=== PATIENT | female | born 1945 | race African-American/Black ===

== ENCOUNTER 2016-12-09 21:20 | Emergency (ER) | payer BC, MEDICAID ==
[~2016-12-09] VITALS: Ht 157.5 cm; Wt 50.0 kg
[2016-12-10 01:05] VITALS: BP 145/82
== END 2016-12-10 01:07 | disposition home or self-care (01) ==
LOC: ER 21:47
DX: Z43.1 Encounter for attention to gastrostomy (principal); I69.259 Hemiplegia and hemiparesis following other nontraumatic intracranial hemorrhage affecting unspecified side; I10 Essential (primary) hypertension
CPT/HCPCS: 43760; 74000; 99284; Z7610

== ENCOUNTER 2016-12-10 15:27 | Emergency (ER) | payer BC ==
[~2016-12-10] VITALS: Ht 162.6 cm; Wt 52.0 kg
[2016-12-10 17:55] VITALS: BP 155/65
== END 2016-12-10 18:43 | disposition home or self-care (01) ==
LOC: ER 16:37
DX: K94.23 Gastrostomy malfunction (principal); I10 Essential (primary) hypertension; Z86.73 Personal history of transient ischemic attack (TIA), and cerebral infarction without residual deficits
CPT/HCPCS: 43760; 99284; Z7610

== ENCOUNTER 2017-02-11 09:23 | Inpatient (IN) | payer BC ==
[~2017-02-11] VITALS: Ht 160 cm; Wt 54.9 kg
[2017-02-11 11:11] LABS: BASOPHILS % 0.7 % (0.0-2.0); EOSINOPHILS % 1.4 % (0.0-5.0); HEMATOCRIT. 35.9 % (36.0-48.0); HEMOGLOBIN. 12.1 g/dL (12.0-16.0); LYMPHOCYTES % 23.9 % (20.0-50.0); MEAN CORPUSCULAR HEMOGLOBIN 28.3 pg (28.0-32.0); MONOCYTES % 8.2 % (2.0-8.0); NEUTROPHILS % 65.8 % (40.0-76.0); PLATELET 245 x1000/uL (130-400); RED BLOOD CELL COUNT 4.28 mill/uL (4.2-5.4); RED CELL DISTRIBUTION WIDTH 13.4 % (11.6-14.6)
[2017-02-11 11:17] LABS: CHLORIDE 106 mEq/L (98-107)
[2017-02-11 11:26] LABS: CARBON DIOXIDE 29 mEq/L (21-32)
[2017-02-11] MEDS ORDERED: MAGNESIUM/ALUMINUM HYDROXIDE/SIMETHICONE 30ML UDC PO PRN (14:15)
[2017-02-11] MEDS ORDERED: ACETAMINOPHEN 325MG TABLET PO PRN (14:15)
[2017-02-11] MEDS ORDERED: DOCUSATE SODIUM 100MG CAPSULE PO PRN (14:15)
[2017-02-11] MEDS ORDERED: CLONIDINE 0.1MG TABLET PO PRN (14:15)
[2017-02-11] MEDS ORDERED: ONDANSETRON HCL 4MG/2ML VIAL IV PRN (14:15)
[2017-02-11] MEDS ORDERED: HYDROCODONE/ACETAMINOPHEN 5/325MG TABLET PO PRN (14:15)
[2017-02-11] MEDS ORDERED: IPRATROPIUM/ALBUTEROL 0.5-3(2.5)MG/3ML NEB INH PRN (14:15)
[2017-02-11 14:24] LABS: GLUCOSE URINE NEGATIVE (NEGATIVE); KETONES URINE NEGATIVE (NEGATIVE); LEUKOCYTE ESTERASE URINE TRACE (NEGATIVE); NITRITE URINE NEGATIVE (NEGATIVE); OCCULT BLOOD URINE TRACE (NEGATIVE); PROTEIN URINE NEGATIVE (NEGATIVE); SPECIFIC GRAVITY URINE 1.007 (1.005-1.030)
[2017-02-11 14:27] LABS: CLARITY URINE CLEAR (CLEAR); COLOR URINE PALE YELLOW (YELLOW)
[2017-02-11] MEDS: SODIUM CHLORIDE 0.9% 1,000 ML IV SCH (19:53)
[2017-02-11] MEDS: ENOXAPARIN 40MG/0.4ML SYR SUBCUT SCH (19:55)
[2017-02-11 20:00] VITALS: BP 139/73
[2017-02-11 23:40] LABS: CREATINE KINASE 86 IU/L (26-192); CREATINE KINASE MB FRACTION < 0.5 ng/mL (0.5-3.6); TROPONIN I < 0.02 ng/mL (0.00-0.04)
[2017-02-12] VITALS: BP 117/62
[2017-02-12] MEDS ORDERED: MAGNESIUM/ALUMINUM HYDROXIDE/SIMETHICONE 30ML UDC GT PRN
[2017-02-12] MEDS ORDERED: DOCUSATE SODIUM 100MG CAPSULE GT PRN
[2017-02-12] MEDS: HYDROCODONE/ACETAMINOPHEN 5/325MG TABLET GT PRN ×2 (00:12→19:28)
[2017-02-12] MEDS ORDERED: ACETAMINOPHEN 325MG TABLET GT PRN (02:15)
[2017-02-12] MEDS ORDERED: CLONIDINE 0.1MG TABLET GT PRN (02:15)
[2017-02-12 04:00] VITALS: BP 134/66
[2017-02-12] MEDS: SODIUM CHLORIDE 0.9% 1,000 ML IV SCH (06:23)
[2017-02-12 08:00] VITALS: BP 135/59
[2017-02-12 10:38] LABS: CARBON DIOXIDE 25 mEq/L (21-32); CHLORIDE 108 mEq/L (98-107); CREATINE KINASE 101 IU/L (26-192); HDL CHOLESTEROL 64 mg/dL (40-59); LDL CHOLESTEROL 60 mg/dL (5-100)
[2017-02-12 10:46] LABS: CREATINE KINASE MB FRACTION 0.8 ng/mL (0.5-3.6); TROPONIN I < 0.02 ng/mL (0.00-0.04)
[2017-02-12 12:00] VITALS: BP 141/68
[2017-02-12 12:41] LABS: BASOPHILS % 0.6 % (0.0-2.0); EOSINOPHILS % 0.3 % (0.0-5.0); HEMATOCRIT. 38.8 % (36.0-48.0); HEMOGLOBIN. 12.4 g/dL (12.0-16.0); MEAN CORPUSCULAR HEMOGLOBIN 27.4 pg (28.0-32.0); MEAN CORPUSCULAR VOLUME 85.8 fL (81.0-99.0); MEAN PLATELET VOLUME 7.9 fl (7.4-10.4); MONOCYTES % 7.3 % (2.0-8.0); NEUTROPHILS % 67.8 % (40.0-76.0); PLATELET 225 x1000/uL (130-400); RED BLOOD CELL COUNT 4.52 mill/uL (4.2-5.4); RED CELL DISTRIBUTION WIDTH 13.4 % (11.6-14.6)
[2017-02-12] MEDS ORDERED: DEXTROSE 50% WATER 50ML SYRINGE IV NR (13:06)
[2017-02-12] MEDS: DEXT 5%/0.9% NACL 1,000 ML IV SCH (14:15)
[2017-02-12 16:00] VITALS: BP 160/79
[2017-02-12] MEDS ORDERED: GLYCERIN ADULT SUPPOSITORY PR NR (17:15)
[2017-02-12] MEDS: CEFTRIAXONE 1 G PREMIX 50 ML IV SCH (19:25)
[2017-02-12 20:00] VITALS: BP 150/82
[2017-02-12] MEDS ORDERED: DEXTROSE 50% WATER 50ML SYRINGE IV PRN (20:45)
[2017-02-12] MEDS: ENOXAPARIN 40MG/0.4ML SYR SUBCUT SCH (20:47)
[2017-02-12] MEDS: BLOOD SUGAR DIAGNOSTIC STRIP TEST SCH (20:56)
[2017-02-13] VITALS: BP 136/75
[2017-02-13 04:00] VITALS: BP 132/55
[2017-02-13] MEDS: BLOOD SUGAR DIAGNOSTIC STRIP TEST SCH ×4 (06:54→21:00)
[2017-02-13] MEDS: DEXT 5%/0.9% NACL 1,000 ML IV SCH ×2 (07:00→22:05)
[2017-02-13 08:00] VITALS: BP 145/62
[2017-02-13 11:14] LABS: CHLORIDE 108 mEq/L (98-107)
[2017-02-13 11:21] LABS: CARBON DIOXIDE 27 mEq/L (21-32)
[2017-02-13 12:00] VITALS: BP 151/68
[2017-02-13 12:36] LABS: BASOPHILS % 0.5 % (0.0-2.0); EOSINOPHILS % 0.9 % (0.0-5.0); HEMATOCRIT. 36.2 % (36.0-48.0); HEMOGLOBIN. 11.9 g/dL (12.0-16.0); MEAN CORPUSCULAR HEMOGLOBIN 27.9 pg (28.0-32.0); MEAN CORPUSCULAR VOLUME 84.6 fL (81.0-99.0); NEUTROPHILS % 64.6 % (40.0-76.0); PLATELET 221 x1000/uL (130-400); RED BLOOD CELL COUNT 4.28 mill/uL (4.2-5.4); RED CELL DISTRIBUTION WIDTH 13.2 % (11.6-14.6)
[2017-02-13] MEDS ORDERED: MAGNESIUM HYDROXIDE 400MG/5ML 30ML UDC PO PRN (13:00)
[2017-02-13 16:00] VITALS: BP 140/60
[2017-02-13] MEDS: CEFTRIAXONE 1 G PREMIX 50 ML IV SCH (18:34)
[2017-02-13 20:00] VITALS: BP 148/66
[2017-02-13] MEDS: ENOXAPARIN 40MG/0.4ML SYR SUBCUT SCH (20:39)
[2017-02-14] VITALS (7 sets, daily range): BP systolic 114–155; BP diastolic 53–87
[2017-02-14] MEDS: BLOOD SUGAR DIAGNOSTIC STRIP TEST SCH ×3 (06:32→17:59)
[2017-02-14 07:02] LABS: BASOPHILS % 0.4 % (0.0-2.0); EOSINOPHILS % 1.4 % (0.0-5.0); HEMATOCRIT. 33.3 % (36.0-48.0); HEMOGLOBIN. 11.3 g/dL (12.0-16.0); LYMPHOCYTES % 29.8 % (20.0-50.0); MEAN CORPUSCULAR HEMOGLOBIN 28.8 pg (28.0-32.0); MEAN CORPUSCULAR VOLUME 84.6 fL (81.0-99.0); MEAN PLATELET VOLUME 7.9 fl (7.4-10.4); MONOCYTES % 10.6 % (2.0-8.0); NEUTROPHILS % 57.8 % (40.0-76.0); PLATELET 221 x1000/uL (130-400); RED BLOOD CELL COUNT 3.93 mill/uL (4.2-5.4); RED CELL DISTRIBUTION WIDTH 13.2 % (11.6-14.6)
[2017-02-14 07:30] LABS: CARBON DIOXIDE 27 mEq/L (21-32); CHLORIDE 110 mEq/L (98-107)
[2017-02-14] MEDS: HYDROCODONE/ACETAMINOPHEN 5/325MG TABLET GT PRN (11:56)
[2017-02-14] MEDS ORDERED: LACTULOSE 20G/30ML UDC PO NR (12:00)
[2017-02-14] MEDS ORDERED: DOCU-138 PO (12:46)
[2017-02-14] MEDS ORDERED: POTASSIUM CHLORIDE INJ 40 MEQ in DEXT 5% WATER 500 ML IV NR (16:00)
[2017-02-14] MEDS: DEXT 5%/0.9% NACL 1,000 ML IV SCH (16:20)
== END 2017-02-14 21:05 | disposition home or self-care (01) | DRG 247 ==
LOC: ER 09:23 → 6EST 13:00 → ENRESERV 16:10
PROVIDERS: ADMIT Internal Medicine; ATTEND Internal Medicine
DX: K56.41 Fecal impaction (principal); R53.2 Functional quadriplegia; N39.0 Urinary tract infection, site not specified; I69.351 Hemiplegia and hemiparesis following cerebral infarction affecting right dominant side; E11.9 Type 2 diabetes mellitus without complications; Z93.1 Gastrostomy status; I69.320 Aphasia following cerebral infarction; I10 Essential (primary) hypertension; E78.00 Pure hypercholesterolemia, unspecified; R47.1 Dysarthria and anarthria; Z74.01 Bed confinement status; E78.5 Hyperlipidemia, unspecified; Z99.3 Dependence on wheelchair; Z90.49 Acquired absence of other specified parts of digestive tract
CPT/HCPCS: 36415; 72220; 73502; 80048; 80053; 80061; 81001; 82550; 82553; 82962; 83735; 84443; 84484; 85025; 87077; 87086; 87186; 93970; 97161; 99285; J0696; J1650; J3480; J7030; J7042; J7060; A4315

== ENCOUNTER 2017-08-04 12:12 | Emergency (ER) | payer BC, MEDICAID ==
[~2017-08-04] VITALS: Ht 162.6 cm; Wt 54.0 kg
[~2017-08-04 12:12] MED LIST: DOCU-138 PO
[2017-08-04 17:19] VITALS: BP 158/74
== END 2017-08-04 17:20 | disposition home or self-care (01) ==
LOC: ER 13:28
DX: N63.20 Unspecified lump in the left breast, unspecified quadrant (principal); I10 Essential (primary) hypertension; E78.00 Pure hypercholesterolemia, unspecified; E11.9 Type 2 diabetes mellitus without complications; Z86.73 Personal history of transient ischemic attack (TIA), and cerebral infarction without residual deficits
CPT/HCPCS: 99283

== ENCOUNTER 2019-01-02 14:01 | Emergency (ER) | payer MEDICAID ==
[~2019-01-02] VITALS: Ht 167.6 cm; Wt 95.0 kg
[2019-01-02] MEDS ORDERED: SODIUM CHLORIDE 0.9% 1,000 ML IV ONE (17:01)
[2019-01-02] MEDS ORDERED: DILTIAZEM HCL 60MG TABLET PO ONE (17:15)
[2019-01-02 18:22] LABS: BASOPHILS % 0.5 % (0.0-2.0); EOSINOPHILS % 1.9 % (0.0-5.0); HEMATOCRIT. 39.2 % (36.0-48.0); HEMOGLOBIN. 12.8 g/dL (12.0-16.0); LYMPHOCYTES % 19.7 % (20.0-50.0); MEAN CORPUSCULAR HEMOGLOBIN 27.6 pg (28.0-32.0); MEAN CORPUSCULAR VOLUME 84.8 fL (81.0-99.0); MEAN PLATELET VOLUME 7.4 fl (7.4-10.4); MONOCYTES % 7.2 % (2.0-8.0); NEUTROPHILS % 70.7 % (40.0-76.0); PLATELET 288 x1000/uL (130-400); RED BLOOD CELL COUNT 4.62 mill/uL (4.2-5.4); RED CELL DISTRIBUTION WIDTH 14.2 % (11.6-14.6)
[2019-01-02 18:25] LABS: CHLORIDE 105 mEq/L (98-107)
[2019-01-02 18:29] LABS: PROTHROMBIN TIME 10.4 sec (9.6-11.0)
[2019-01-02 20:12] VITALS: BP 136/60
== END 2019-01-02 21:33 | disposition home or self-care (01) ==
LOC: ER 14:01
DX: N93.8 Other specified abnormal uterine and vaginal bleeding (principal); R47.01 Aphasia; E78.00 Pure hypercholesterolemia, unspecified; E11.9 Type 2 diabetes mellitus without complications; I10 Essential (primary) hypertension; Z86.73 Personal history of transient ischemic attack (TIA), and cerebral infarction without residual deficits; Z90.49 Acquired absence of other specified parts of digestive tract
CPT/HCPCS: 36415; 76856; 80053; 85025; 85610; 85730; 99284; J7030

== ENCOUNTER 2019-04-29 15:40 | Inpatient (IN) | payer MEDICAID ==
[~2019-04-29] VITALS: Ht 160 cm; Wt 67.6 kg
[2019-04-29 19:05] LABS: BASOPHILS % 0.6 % (0.0-2.0); HEMATOCRIT. 38.3 % (36.0-48.0); HEMOGLOBIN. 12.4 g/dL (12.0-16.0); LYMPHOCYTES % 18.1 % (20.0-50.0); MEAN CORPUSCULAR HEMOGLOBIN 27.1 pg (28.0-32.0); MEAN CORPUSCULAR VOLUME 83.4 fL (81.0-99.0); MEAN PLATELET VOLUME 7.5 fl (7.4-10.4); MONOCYTES % 6.4 % (2.0-8.0); NEUTROPHILS % 72.9 % (40.0-76.0); PLATELET 413 x1000/uL (130-400); RED BLOOD CELL COUNT 4.59 mill/uL (4.2-5.4); RED CELL DISTRIBUTION WIDTH 14.7 % (11.6-14.6)
[2019-04-29 19:12] LABS: CHLORIDE 106 mEq/L (98-107)
[2019-04-29 19:14] LABS: PARTIAL THROMBOPLASTIN TIME 24.5 sec (23.4-31.0)
[2019-04-29] MEDS ORDERED: MORPHINE SULFATE 2 MG/ML CPJ (NOT FOR IM USE) IV PRN (23:23)
[2019-04-30] MEDS ORDERED: MORPHINE SULFATE 4 MG/ML CPJ (NOT FOR IM USE) IV ONE (06:00)
[2019-04-30] MEDS ORDERED: ONDANSETRON HCL 4MG/2ML INJ IV PRN (10:00)
[2019-04-30] MEDS ORDERED: HYDRALAZINE 20MG/ML VIAL IV SCH (11:00)
[2019-04-30] MEDS: DEXT 5%/0.45% NACL 1000ML 1,000 ML IV SCH ×2 (11:24→22:15)
[2019-04-30] MEDS ORDERED: LETR2.5T7 PO (11:36)
[2019-04-30] MEDS ORDERED: DILT120T13 PO (11:43)
[2019-04-30] MEDS ORDERED: BENA20TA10 GT (11:45)
[2019-04-30] MEDS ORDERED: SIMV-46 GT (11:45)
[2019-04-30] MEDS ORDERED: ASPI-1158 GT (11:45)
[2019-04-30] MEDS ORDERED: HYDRALAZINE 20MG/ML VIAL IV PRN (14:15)
[2019-04-30] MEDS ORDERED: HYDRALAZINE 10 MG in SODIUM CHLORIDE 0.9% 49.5 ML IV PRN (18:30)
[2019-04-30 20:00] VITALS: BP 141/64
[2019-04-30] MEDS: PANTOPRAZOLE SODIUM 40 MG/VIAL IV SCH (20:48)
[2019-05-01] VITALS: BP 119/54
[2019-05-01 04:00] VITALS: BP 92/56
[2019-05-01 05:33] LABS: BASOPHILS % 0.3 % (0.0-2.0); EOSINOPHILS % 0.3 % (0.0-5.0); HEMATOCRIT. 32.4 % (36.0-48.0); HEMOGLOBIN. 10.5 g/dL (12.0-16.0); LYMPHOCYTES % 15.9 % (20.0-50.0); MEAN CORPUSCULAR HEMOGLOBIN 27.5 pg (28.0-32.0); MEAN CORPUSCULAR VOLUME 84.3 fL (81.0-99.0); MEAN PLATELET VOLUME 7.6 fl (7.4-10.4); MONOCYTES % 10.3 % (2.0-8.0); NEUTROPHILS % 73.2 % (40.0-76.0); PLATELET 349 x1000/uL (130-400); RED BLOOD CELL COUNT 3.84 mill/uL (4.2-5.4); RED CELL DISTRIBUTION WIDTH 14.7 % (11.6-14.6)
[2019-05-01 05:57] LABS: INR 1.1; PARTIAL THROMBOPLASTIN TIME 25.5 sec (23.4-31.0); PROTHROMBIN TIME 11.3 sec (9.6-11.0)
[2019-05-01] MEDS: DEXT 5%/0.45% NACL 1000ML 1,000 ML IV SCH ×2 (06:06→16:00)
[2019-05-01 06:59] LABS: CHLORIDE 110 mEq/L (98-107)
[2019-05-01] MEDS: PANTOPRAZOLE SODIUM 40 MG/VIAL IV SCH (08:39)
[2019-05-01] MEDS ORDERED: CEFAZOLIN 1000MG PREMIX 50 ML IV NR (13:00)
[2019-05-01] MEDS ORDERED: MIDAZOLAM HCL 5 MG/5 ML VIAL ONE ×2 (16:03→16:04)
[2019-05-01] MEDS ORDERED: FENTANYL CITRATE/PF 50MCG/ML 2ML VIAL ONE (16:04)
[2019-05-01] MEDS ORDERED: MIDAZOLAM HCL 5 MG/5 ML VIAL IV PRN (16:15)
[2019-05-01] MEDS ORDERED: FENTANYL CITRATE/PF 50MCG/ML 2ML VIAL IV PRN (16:16)
[2019-05-01 19:31] VITALS: BP 156/68
[2019-05-01 20:00] VITALS: BP 141/69
[2019-05-01 20:01] VITALS: BP 128/56
== END 2019-05-01 22:40 | disposition home or self-care (01) | DRG 252 ==
LOC: ER 15:40 → EDBEDREQTM 19:32 → EDBEDREQ 19:32 → EDBEDREQSVC 19:32 → EDBEDREQTM 20:00 → EDBEDREQSVC 20:00 → ENRESERV 04-30 16:54 → 6EST 04-30 18:12
PROVIDERS: ADMIT Internal Medicine; ATTEND Internal Medicine
PROC: 0DH63UZ Insertion of Feeding Device into Stomach, Percutaneous Approach (ICD-10-PCS; principal; 2019-05-01)
DX: K94.23 Gastrostomy malfunction (principal); E46 Unspecified protein-calorie malnutrition; I69.354 Hemiplegia and hemiparesis following cerebral infarction affecting left non-dominant side; K22.10 Ulcer of esophagus without bleeding; E11.9 Type 2 diabetes mellitus without complications; Y83.3 Surgical operation with formation of external stoma as the cause of abnormal reaction of the patient, or of later complication, without mention of misadventure at the time of the procedure; E78.00 Pure hypercholesterolemia, unspecified; I10 Essential (primary) hypertension; K29.70 Gastritis, unspecified, without bleeding; K44.9 Diaphragmatic hernia without obstruction or gangrene; R13.12 Dysphagia, oropharyngeal phase; Y92.89 Other specified places as the place of occurrence of the external cause; Z68.26 Body mass index [BMI] 26.0-26.9, adult; Z79.899 Other long term (current) drug therapy; Z90.49 Acquired absence of other specified parts of digestive tract
CPT/HCPCS: 36415; 71045; 73560; 73590; 73630; 80048; 80053; 83036; 84145; 85025; 93970; 96361; 96374; 96375; 96376; 97162; 97166; 99285; C9113; J0360; J0690; J2250; J2270; J2405; J3010; J7040

== ENCOUNTER 2019-05-30 14:46 | Inpatient (IN) | payer MEDICAID ==
[~2019-05-30] VITALS: Ht 162.6 cm; Wt 70.3 kg
[~2019-05-30 14:46] MED LIST changes: +ASPI-1158 GT; +BENA20TA10 GT; +DILT120T13 PO; +LETR2.5T7 PO; +SIMV-46 GT
[2019-05-30 18:02] LABS: BASOPHILS % 0.6 % (0.0-2.0); EOSINOPHILS % 0.8 % (0.0-5.0); HEMATOCRIT. 32.2 % (36.0-48.0); HEMOGLOBIN. 10.1 g/dL (12.0-16.0); LYMPHOCYTES % 19.4 % (20.0-50.0); MEAN CORPUSCULAR HEMOGLOBIN 26.7 pg (28.0-32.0); MEAN CORPUSCULAR VOLUME 85.3 fL (81.0-99.0); MEAN PLATELET VOLUME 7.6 fl (7.4-10.4); NEUTROPHILS % 73.2 % (40.0-76.0); PLATELET 412 x1000/uL (130-400); RED BLOOD CELL COUNT 3.77 mill/uL (4.2-5.4); RED CELL DISTRIBUTION WIDTH 14.7 % (11.6-14.6)
[2019-05-30 18:08] LABS: CHLORIDE 106 mEq/L (98-107)
[2019-05-30 18:09] LABS: PARTIAL THROMBOPLASTIN TIME 22.2 sec (23.4-31.0)
[2019-05-31 03:40] VITALS: BP 149/68
[2019-05-31 04:44] VITALS: BP 140/68
[2019-05-31 08:00] VITALS: BP 111/75
[2019-05-31 08:49] LABS: BASOPHILS % 0.3 % (0.0-2.0); EOSINOPHILS % 0.5 % (0.0-5.0); HEMATOCRIT. 26.6 % (36.0-48.0); HEMOGLOBIN. 8.5 g/dL (12.0-16.0); MEAN CORPUSCULAR HEMOGLOBIN 27.2 pg (28.0-32.0); MEAN PLATELET VOLUME 7.2 fl (7.4-10.4); MONOCYTES % 7.3 % (2.0-8.0); NEUTROPHILS % 71.9 % (40.0-76.0); PLATELET 378 x1000/uL (130-400); RED BLOOD CELL COUNT 3.12 mill/uL (4.2-5.4); RED CELL DISTRIBUTION WIDTH 14.9 % (11.6-14.6)
[2019-05-31 08:51] LABS: BASOPHILS % 0.2 % (0.0-2.0); EOSINOPHILS % 0.4 % (0.0-5.0); HEMATOCRIT. 26.8 % (36.0-48.0); HEMOGLOBIN. 8.7 g/dL (12.0-16.0); LYMPHOCYTES % 19.6 % (20.0-50.0); MEAN CORPUSCULAR HEMOGLOBIN 27.6 pg (28.0-32.0); MEAN CORPUSCULAR VOLUME 85.3 fL (81.0-99.0); MEAN PLATELET VOLUME 7.2 fl (7.4-10.4); MONOCYTES % 6.7 % (2.0-8.0); NEUTROPHILS % 73.1 % (40.0-76.0); PLATELET 371 x1000/uL (130-400); RED BLOOD CELL COUNT 3.14 mill/uL (4.2-5.4); RED CELL DISTRIBUTION WIDTH 14.6 % (11.6-14.6)
[2019-05-31 12:00] VITALS: BP 121/59
[2019-05-31] MEDS: DILTIAZEM HCL 60MG TABLET PO SCH (14:52)
[2019-05-31] MEDS: BENAZEPRIL 10MG TABLET PO SCH (14:53)
[2019-05-31] MEDS ORDERED: LETROZOLE 2.5MG TABLET PO SCH (15:00)
[2019-05-31 15:27] LABS: BASOPHILS % 0.5 % (0.0-2.0); EOSINOPHILS % 0.3 % (0.0-5.0); HEMATOCRIT. 27.6 % (36.0-48.0); HEMOGLOBIN. 8.7 g/dL (12.0-16.0); LYMPHOCYTES % 19.8 % (20.0-50.0); MEAN CORPUSCULAR VOLUME 85.8 fL (81.0-99.0); MEAN PLATELET VOLUME 7.4 fl (7.4-10.4); MONOCYTES % 7.5 % (2.0-8.0); NEUTROPHILS % 71.9 % (40.0-76.0); PLATELET 401 x1000/uL (130-400); RED BLOOD CELL COUNT 3.22 mill/uL (4.2-5.4); RED CELL DISTRIBUTION WIDTH 14.5 % (11.6-14.6)
[2019-05-31 16:00] VITALS: BP_SYST 121; BP_SYST 139; BP_DIAS 56; BP_DIAS 59
[2019-05-31] MEDS: DOCUSATE SODIUM 100MG CAPSULE PO SCH (17:00)
[2019-05-31] MEDS ORDERED: SORBITOL 70% SOLN 30ML PO SCH (18:30)
[2019-05-31 19:17] LABS: TOTAL IRON BINDING CAPACITY 310 ug/dL (250-450)
[2019-05-31 20:00] VITALS: BP 102/52
[2019-05-31] MEDS ORDERED: BISACODYL 10MG SUPP PR SCH (21:00)
[2019-05-31] MEDS: ATORVASTATIN CALCIUM 40MG TABLET PO SCH (21:38)
[2019-05-31] MEDS: LETROZOLE 2.5MG TABLET PO SCH (22:24)
[2019-05-31] MEDS: ONDANSETRON HCL 4MG/2ML INJ IV PRN (23:10)
[2019-05-31] MEDS: ACETAMINOPHEN 650MG/20.3ML UDC PO PRN (23:11)
[2019-05-31 23:56] LABS: BASOPHILS % 0.3 % (0.0-2.0); EOSINOPHILS % 0.1 % (0.0-5.0); HEMATOCRIT. 28.3 % (36.0-48.0); HEMOGLOBIN. 8.8 g/dL (12.0-16.0); LYMPHOCYTES % 26.1 % (20.0-50.0); MEAN CORPUSCULAR HEMOGLOBIN 26.7 pg (28.0-32.0); MEAN CORPUSCULAR VOLUME 85.6 fL (81.0-99.0); MEAN PLATELET VOLUME 7.2 fl (7.4-10.4); MONOCYTES % 7.7 % (2.0-8.0); NEUTROPHILS % 65.8 % (40.0-76.0); PLATELET 408 x1000/uL (130-400); RED CELL DISTRIBUTION WIDTH 14.8 % (11.6-14.6)
[2019-06-01] VITALS (8 sets, daily range): BP systolic 91–124; BP diastolic 37–63
[2019-06-01 07:09] LABS: BASOPHILS % 0.1 % (0.0-2.0); HEMATOCRIT. 22.3 % (36.0-48.0); HEMOGLOBIN. 7.2 g/dL (12.0-16.0); LYMPHOCYTES % 12.3 % (20.0-50.0); MEAN CORPUSCULAR HEMOGLOBIN 27.4 pg (28.0-32.0); MEAN CORPUSCULAR VOLUME 84.8 fL (81.0-99.0); MEAN PLATELET VOLUME 7.3 fl (7.4-10.4); MONOCYTES % 8.9 % (2.0-8.0); NEUTROPHILS % 78.7 % (40.0-76.0); PLATELET 357 x1000/uL (130-400); RED BLOOD CELL COUNT 2.63 mill/uL (4.2-5.4); RED CELL DISTRIBUTION WIDTH 15.1 % (11.6-14.6)
[2019-06-01 07:41] LABS: CHLORIDE 112 mEq/L (98-107)
[2019-06-01] MEDS ORDERED: SORBITOL 70% SOLN 30ML PO SCH (08:00)
[2019-06-01] MEDS: BENAZEPRIL 10MG TABLET PO SCH (08:55)
[2019-06-01] MEDS ORDERED: ACETAMINOPHEN 325MG TABLET PO NR (10:15)
[2019-06-01] MEDS ORDERED: DIPHENHYDRAMINE 25MG CAPSULE PO NR (10:15)
[2019-06-01] MEDS: DILTIAZEM HCL 60MG TABLET PO SCH (10:20)
[2019-06-01] MEDS: DOCUSATE SODIUM 100MG CAPSULE PO SCH ×2 (10:20→17:00)
[2019-06-01] MEDS: MINERAL OIL ENEMA 133ML PR SCH ×3 (10:21→22:50)
[2019-06-01] MEDS: LETROZOLE 2.5MG TABLET PO SCH (13:39)
[2019-06-01] MEDS: SORBITOL 70% SOLN 30ML PO SCH ×4 (13:39→22:47)
[2019-06-01] MEDS ORDERED: DIPHENHYDRAMINE 50MG/ML VIAL IV NR (16:45)
[2019-06-01] MEDS: FERROUS SULFATE 300MG/5ML UDC PO SCH ×2 (17:15→19:15)
[2019-06-01] MEDS: METOCLOPRAMIDE 10MG/10 ML UDC PO SCH (20:23)
[2019-06-01 21:05] LABS: CLARITY URINE CLEAR (CLEAR); COLOR URINE YELLOW (YELLOW); KETONES URINE NEGATIVE (NEGATIVE); LEUKOCYTE ESTERASE URINE NEGATIVE (NEGATIVE); NITRITE URINE NEGATIVE (NEGATIVE); OCCULT BLOOD URINE NEGATIVE (NEGATIVE); PROTEIN URINE NEGATIVE (NEGATIVE); SPECIFIC GRAVITY URINE 1.021 (1.005-1.030)
[2019-06-01] MEDS: ATORVASTATIN CALCIUM 40MG TABLET PO SCH (22:50)
[2019-06-02] VITALS (50 sets, daily range): BP systolic 58–140; BP diastolic 33–88
[2019-06-02] MEDS: SORBITOL 70% SOLN 30ML PO SCH ×4 (02:13→14:00)
[2019-06-02] MEDS: METOCLOPRAMIDE 10MG/10 ML UDC PO SCH ×4 (02:34→20:17)
[2019-06-02] MEDS: ONDANSETRON HCL 4MG/2ML INJ IV PRN ×2 (02:37→08:57)
[2019-06-02] MEDS: FERROUS SULFATE 300MG/5ML UDC PO SCH ×3 (06:38→17:01)
[2019-06-02 08:18] LABS: HEMATOCRIT. 28.4 % (36.0-48.0); HEMOGLOBIN. 8.9 g/dL (12.0-16.0); MEAN CORPUSCULAR HEMOGLOBIN 27.1 pg (28.0-32.0); MEAN CORPUSCULAR VOLUME 86.1 fL (81.0-99.0); MEAN PLATELET VOLUME 7.3 fl (7.4-10.4); PLATELET 418 x1000/uL (130-400); RED CELL DISTRIBUTION WIDTH 15.2 % (11.6-14.6)
[2019-06-02 08:42] LABS: CHLORIDE 127 mEq/L (98-107)
[2019-06-02 09:57] LABS: PLATELET ESTIMATE INCREASED
[2019-06-02] MEDS: BENAZEPRIL 10MG TABLET PO SCH (10:42)
[2019-06-02] MEDS: DILTIAZEM HCL 60MG TABLET PO SCH (10:42)
[2019-06-02] MEDS: LETROZOLE 2.5MG TABLET PO SCH (10:43)
[2019-06-02] MEDS: DOCUSATE SODIUM 100MG CAPSULE PO SCH ×2 (10:52→17:00)
[2019-06-02] MEDS ORDERED: POTASSIUM CHLORIDE INJ 40 MEQ in DEXT 5% WATER 250 ML IV SCH (11:30)
[2019-06-02 13:36] LABS: BG BASE EXCESS -3.7 mmol/L (-2.0-2.0); BG CARBOXYHEMOGLOBIN 0.9 % (0.5-1.5); BG DEOXYHEMOGLOBIN 0.3 % (0.0-5.0); BG FRACTION INSPIRED OXYGEN 100; BG HCO3 ACT 21.5 mmol/L (22.0-26.0); BG METHEMOGLOBIN 0.3 % (0.0-1.5); BG OXYGEN SATURATION 99.7 % (92.0-98.5); BG OXYHEMOGLOBIN 98.5 % (94.0-97.0); BG PCO2 39.4 mmHg (35.0-45.0); BG PH 7.354 (7.350-7.450); BG PO2 358.2 mmHg (75.0-100.0); BG SAMPLE SITE RIGHT RADIAL; BG TOTAL HEMOGLOBIN 10.3 g/dL (12.0-18.0); BG VENT MODE MASK - NRB
[2019-06-02] MEDS: PIPERACILLIN/TAZOBACTAM 3.375 G in DEXT 5% WATER 100 ML IV SCH ×2 (15:15→20:17)
[2019-06-02 16:50] LABS: CHLORIDE 131 mEq/L (98-107)
[2019-06-02] MEDS ORDERED: DEXT 5%/0.45% NACL 1000ML 1,000 ML IV SCH (17:30)
[2019-06-02] MEDS: ATORVASTATIN CALCIUM 40MG TABLET PO SCH (20:17)
[2019-06-02] MEDS: MINERAL OIL ENEMA 133ML PR SCH (21:00)
[2019-06-03] VITALS (84 sets, daily range): BP systolic 83–127; BP diastolic 38–80
[2019-06-03] MEDS: METOCLOPRAMIDE 10MG/10 ML UDC PO SCH ×4 (01:13→20:00)
[2019-06-03] MEDS: PIPERACILLIN/TAZOBACTAM 3.375 G in DEXT 5% WATER 100 ML IV SCH ×2 (03:46→09:24)
[2019-06-03 06:11] LABS: HEMATOCRIT. 27.4 % (36.0-48.0); HEMOGLOBIN. 8.4 g/dL (12.0-16.0); MEAN CORPUSCULAR HEMOGLOBIN 26.5 pg (28.0-32.0); MEAN PLATELET VOLUME 7.6 fl (7.4-10.4); PLATELET 371 x1000/uL (130-400); RED BLOOD CELL COUNT 3.15 mill/uL (4.2-5.4); RED CELL DISTRIBUTION WIDTH 15.5 % (11.6-14.6)
[2019-06-03] MEDS: FERROUS SULFATE 300MG/5ML UDC PO SCH (06:33)
[2019-06-03] MEDS ORDERED: POTASSIUM CHLORIDE INJ 40 MEQ in DEXT 5% WATER 250 ML IV ONE (08:30)
[2019-06-03 08:42] LABS: NUCLEATED RED BLOOD CELLS 2 /100 WBC; PLATELET ESTIMATE NORMAL
[2019-06-03] MEDS: LETROZOLE 2.5MG TABLET PO SCH ×2 (09:00→10:00)
[2019-06-03] MEDS: MINERAL OIL ENEMA 133ML PR SCH (09:00)
[2019-06-03] MEDS: DILTIAZEM HCL 60MG TABLET PO SCH ×2 (09:00→09:23)
[2019-06-03] MEDS ORDERED: DOCUSATE SODIUM 100MG CAPSULE PO SCH (09:00)
[2019-06-03] MEDS: IRON SUCROSE COMPLEX 100 MG/5 ML ML IV SCH (09:23)
[2019-06-03] MEDS: BENAZEPRIL 10MG TABLET PO SCH (09:24)
[2019-06-03] MEDS: DEXTROSE 5% WATER 1,000 ML IV SCH (09:24)
[2019-06-03] MEDS ORDERED: POTASSIUM CHLORIDE INJ 40 MEQ in DEXT 5% WATER 250 ML IV SCH (09:30)
[2019-06-03] MEDS: DOCUSATE SODIUM SUGAR FREE 100MG/10ML UDC PO SCH ×2 (10:16→17:25)
[2019-06-03] MEDS: PIPERACILLIN/TAZOBACTAM 2.25 G in DEXTROSE 5% WATER 50 ML IV SCH (17:26)
[2019-06-03] MEDS ORDERED: VANCOMYCIN 1250MG in DEXTROSE 5% WATER 250ML IV NR (18:00)
[2019-06-04] VITALS (8 sets, daily range): BP systolic 84–99; BP diastolic 29–49
[2019-06-04] MEDS: PIPERACILLIN/TAZOBACTAM 2.25 G in DEXTROSE 5% WATER 50 ML IV SCH ×4 (01:52→18:52)
[2019-06-04] MEDS: DEXTROSE 5% WATER 1,000 ML IV SCH ×3 (01:55→19:00)
[2019-06-04] MEDS: ACETAMINOPHEN 650MG/20.3ML UDC PO PRN (05:39)
[2019-06-04] MEDS: DOCUSATE SODIUM SUGAR FREE 100MG/10ML UDC PO SCH (08:10)
[2019-06-04] MEDS: IRON SUCROSE COMPLEX 100 MG/5 ML ML IV SCH (08:11)
[2019-06-04 08:33] LABS: BASOPHILS % 0.8 % (0.0-2.0); EOSINOPHILS % 0.6 % (0.0-5.0); HEMATOCRIT. 25.8 % (36.0-48.0); HEMOGLOBIN. 7.8 g/dL (12.0-16.0); LYMPHOCYTES % 10.7 % (20.0-50.0); MEAN CORPUSCULAR HEMOGLOBIN 27.1 pg (28.0-32.0); MEAN CORPUSCULAR VOLUME 89.6 fL (81.0-99.0); MEAN PLATELET VOLUME 8.2 fl (7.4-10.4); MONOCYTES % 7.7 % (2.0-8.0); NEUTROPHILS % 80.2 % (40.0-76.0); PLATELET 266 x1000/uL (130-400); RED BLOOD CELL COUNT 2.88 mill/uL (4.2-5.4); RED CELL DISTRIBUTION WIDTH 16.7 % (11.6-14.6)
[2019-06-04] MEDS: LETROZOLE 2.5MG TABLET PO SCH (10:47)
[2019-06-04] MEDS ORDERED: VANCOMYCIN 750 MG PREMIX 150 ML IV SCH (12:00)
[2019-06-04] MEDS: VANCOMYCIN 500 MG PREMIX 100 ML IV SCH ×2 (15:05→23:47)
[2019-06-04] MEDS ORDERED: MAGNESIUM HYDROXIDE 400MG/5ML 30ML UDC PO PRN (15:30)
[2019-06-05] VITALS (10 sets, daily range): BP systolic 90–130; BP diastolic 37–72
[2019-06-05] MEDS: PIPERACILLIN/TAZOBACTAM 2.25 G in DEXTROSE 5% WATER 50 ML IV SCH ×4 (02:36→19:32)
[2019-06-05] MEDS: DEXTROSE 5% WATER 1,000 ML IV SCH (04:47)
[2019-06-05] MEDS: ONDANSETRON HCL 4MG/2ML INJ IV PRN (04:53)
[2019-06-05 07:20] LABS: CHLORIDE 113 mEq/L (98-107)
[2019-06-05 07:58] LABS: BASOPHILS % 0.5 % (0.0-2.0); EOSINOPHILS % 2.7 % (0.0-5.0); LYMPHOCYTES % 9.9 % (20.0-50.0); MEAN CORPUSCULAR HEMOGLOBIN 26.8 pg (28.0-32.0); MEAN CORPUSCULAR VOLUME 85.8 fL (81.0-99.0); MEAN PLATELET VOLUME 7.7 fl (7.4-10.4); MONOCYTES % 8.3 % (2.0-8.0); NEUTROPHILS % 78.6 % (40.0-76.0); PLATELET 313 x1000/uL (130-400); RED BLOOD CELL COUNT 2.46 mill/uL (4.2-5.4); RED CELL DISTRIBUTION WIDTH 15.1 % (11.6-14.6)
[2019-06-05 08:06] LABS: HEMATOCRIT. 21.1 % (36.0-48.0); HEMOGLOBIN. 6.6 g/dL (12.0-16.0)
[2019-06-05] MEDS ORDERED: POTASSIUM CHLORIDE 20MEQ/PACKET PO NR (08:15)
[2019-06-05] MEDS: LETROZOLE 2.5MG TABLET PO SCH (09:13)
[2019-06-05] MEDS: IRON SUCROSE COMPLEX 100 MG/5 ML ML IV SCH (09:13)
[2019-06-05] MEDS: DOCUSATE SODIUM SUGAR FREE 100MG/10ML UDC PO SCH ×2 (09:53→17:14)
[2019-06-05] MEDS: VANCOMYCIN 500 MG PREMIX 100 ML IV SCH (11:20)
[2019-06-05] MEDS ORDERED: POTASSIUM CHLORIDE 20MEQ TABLET SR PO NR (17:00)
[2019-06-05] MEDS: VANCOMYCIN 1 G PREMIX 200 ML IV SCH (22:17)
[2019-06-05] MEDS: ACETAMINOPHEN 650MG/20.3ML UDC PO PRN (23:14)
[2019-06-06] VITALS: BP 91/30
[2019-06-06] MEDS: PIPERACILLIN/TAZOBACTAM 2.25 G in DEXTROSE 5% WATER 50 ML IV SCH ×4 (03:20→18:53)
[2019-06-06 04:00] VITALS: BP 91/39
[2019-06-06 06:59] LABS: BASOPHILS % 0.5 % (0.0-2.0); EOSINOPHILS % 5.8 % (0.0-5.0); HEMATOCRIT. 30.7 % (36.0-48.0); HEMOGLOBIN. 9.9 g/dL (12.0-16.0); LYMPHOCYTES % 11.8 % (20.0-50.0); MEAN CORPUSCULAR VOLUME 86.5 fL (81.0-99.0); MEAN PLATELET VOLUME 7.9 fl (7.4-10.4); MONOCYTES % 9.6 % (2.0-8.0); NEUTROPHILS % 72.3 % (40.0-76.0); PLATELET 313 x1000/uL (130-400); RED BLOOD CELL COUNT 3.55 mill/uL (4.2-5.4); RED CELL DISTRIBUTION WIDTH 15.1 % (11.6-14.6)
[2019-06-06 07:05] LABS: CHLORIDE 115 mEq/L (98-107)
[2019-06-06 08:00] VITALS: BP 117/95
[2019-06-06] MEDS: LETROZOLE 2.5MG TABLET PO SCH (10:46)
[2019-06-06] MEDS: FOLIC ACID 1MG TABLET PO SCH (10:46)
[2019-06-06] MEDS: THIAMINE HCL 100MG TABLET PO SCH (10:46)
[2019-06-06] MEDS: DOCUSATE SODIUM SUGAR FREE 100MG/10ML UDC PO SCH ×2 (10:46→17:00)
[2019-06-06] MEDS: ACETAMINOPHEN 650MG/20.3ML UDC PO PRN (10:50)
[2019-06-06 11:40] VITALS: BP 130/58
[2019-06-06 16:00] VITALS: BP 144/74
[2019-06-06] MEDS: VANCOMYCIN 1 G PREMIX 200 ML IV SCH (18:53)
[2019-06-06 20:14] VITALS: BP 132/68
[2019-06-07] VITALS (7 sets, daily range): BP systolic 121–151; BP diastolic 57–115
[2019-06-07] MEDS: PIPERACILLIN/TAZOBACTAM 2.25 G in DEXTROSE 5% WATER 50 ML IV SCH ×4 (00:30→18:19)
[2019-06-07 06:54] LABS: CHLORIDE 115 mEq/L (98-107)
[2019-06-07 07:49] LABS: BASOPHILS % 0.2 % (0.0-2.0); EOSINOPHILS % 6.8 % (0.0-5.0); HEMATOCRIT. 28.7 % (36.0-48.0); HEMOGLOBIN. 9.2 g/dL (12.0-16.0); LYMPHOCYTES % 7.8 % (20.0-50.0); MEAN CORPUSCULAR HEMOGLOBIN 28.4 pg (28.0-32.0); MEAN CORPUSCULAR VOLUME 88.2 fL (81.0-99.0); MONOCYTES % 9.2 % (2.0-8.0); RED BLOOD CELL COUNT 3.25 mill/uL (4.2-5.4); RED CELL DISTRIBUTION WIDTH 14.9 % (11.6-14.6)
[2019-06-07] MEDS: DOCUSATE SODIUM SUGAR FREE 100MG/10ML UDC PO SCH ×2 (08:29→18:19)
[2019-06-07] MEDS: LETROZOLE 2.5MG TABLET PO SCH (08:29)
[2019-06-07] MEDS: THIAMINE HCL 100MG TABLET PO SCH (08:29)
[2019-06-07] MEDS: VANCOMYCIN 1 G PREMIX 200 ML IV SCH (08:29)
[2019-06-07] MEDS: FOLIC ACID 1MG TABLET PO SCH (08:30)
[2019-06-07 10:02] LABS: PLATELET 265 x1000/uL (130-400)
[2019-06-07] MEDS ORDERED: BISACODYL 10MG SUPP PR NR (21:00)
[2019-06-08] VITALS (10 sets, daily range): BP systolic 108–147; BP diastolic 46–71
[2019-06-08] MEDS: PIPERACILLIN/TAZOBACTAM 2.25 G in DEXTROSE 5% WATER 50 ML IV SCH ×5 (00:36→23:26)
[2019-06-08 07:00] LABS: BASOPHILS % 0.4 % (0.0-2.0); EOSINOPHILS % 5.7 % (0.0-5.0); HEMOGLOBIN. 9.4 g/dL (12.0-16.0); LYMPHOCYTES % 11.3 % (20.0-50.0); MEAN CORPUSCULAR HEMOGLOBIN 28.2 pg (28.0-32.0); MEAN CORPUSCULAR VOLUME 87.4 fL (81.0-99.0); MEAN PLATELET VOLUME 7.9 fl (7.4-10.4); NEUTROPHILS % 71.6 % (40.0-76.0); PLATELET 303 x1000/uL (130-400); RED BLOOD CELL COUNT 3.32 mill/uL (4.2-5.4); RED CELL DISTRIBUTION WIDTH 15.2 % (11.6-14.6)
[2019-06-08 07:45] LABS: CHLORIDE 114 mEq/L (98-107)
[2019-06-08 07:53] LABS: TOTAL IRON BINDING CAPACITY 382 ug/dL (250-450)
[2019-06-08] MEDS: DOCUSATE SODIUM SUGAR FREE 100MG/10ML UDC PO SCH ×2 (09:54→17:34)
[2019-06-08] MEDS: LETROZOLE 2.5MG TABLET PO SCH (09:55)
[2019-06-08] MEDS: FOLIC ACID 1MG TABLET PO SCH (09:55)
[2019-06-08] MEDS: THIAMINE HCL 100MG TABLET PO SCH (09:55)
[2019-06-09] VITALS (7 sets, daily range): BP systolic 114–155; BP diastolic 55–75
[2019-06-09] MEDS: PIPERACILLIN/TAZOBACTAM 2.25 G in DEXTROSE 5% WATER 50 ML IV SCH (05:29)
[2019-06-09 08:01] LABS: BASOPHILS % 0.6 % (0.0-2.0); EOSINOPHILS % 5.4 % (0.0-5.0); HEMATOCRIT. 28.1 % (36.0-48.0); HEMOGLOBIN. 9.2 g/dL (12.0-16.0); LYMPHOCYTES % 10.4 % (20.0-50.0); MEAN PLATELET VOLUME 7.7 fl (7.4-10.4); MONOCYTES % 11.8 % (2.0-8.0); NEUTROPHILS % 71.8 % (40.0-76.0); PLATELET 319 x1000/uL (130-400); RED BLOOD CELL COUNT 3.27 mill/uL (4.2-5.4); RED CELL DISTRIBUTION WIDTH 15.7 % (11.6-14.6)
[2019-06-09] MEDS: LETROZOLE 2.5MG TABLET PO SCH (08:42)
[2019-06-09] MEDS: DOCUSATE SODIUM SUGAR FREE 100MG/10ML UDC PO SCH ×2 (08:43→16:25)
[2019-06-09] MEDS: FERROUS SULFATE 300MG/5ML UDC PO SCH ×3 (08:43→18:03)
[2019-06-09 09:13] LABS: CHLORIDE 111 mEq/L (98-107)
[2019-06-09] MEDS: CEFTRIAXONE 1 G PREMIX 50 ML IV SCH (14:39)
[2019-06-10] VITALS: BP 155/76
[2019-06-10 04:00] VITALS: BP 155/92
[2019-06-10 07:31] LABS: BASOPHILS % 0.5 % (0.0-2.0); EOSINOPHILS % 4.8 % (0.0-5.0); HEMATOCRIT. 30.5 % (36.0-48.0); HEMOGLOBIN. 9.9 g/dL (12.0-16.0); LYMPHOCYTES % 17.2 % (20.0-50.0); MEAN CORPUSCULAR HEMOGLOBIN 28.2 pg (28.0-32.0); MEAN CORPUSCULAR VOLUME 86.9 fL (81.0-99.0); MEAN PLATELET VOLUME 7.7 fl (7.4-10.4); MONOCYTES % 12.2 % (2.0-8.0); NEUTROPHILS % 65.3 % (40.0-76.0); PLATELET 339 x1000/uL (130-400); RED BLOOD CELL COUNT 3.51 mill/uL (4.2-5.4); RED CELL DISTRIBUTION WIDTH 15.8 % (11.6-14.6)
[2019-06-10 07:49] LABS: CHLORIDE 109 mEq/L (98-107)
[2019-06-10 08:00] VITALS: BP 133/64
[2019-06-10] MEDS: DOCUSATE SODIUM SUGAR FREE 100MG/10ML UDC PO SCH ×2 (08:04→16:59)
[2019-06-10] MEDS: FERROUS SULFATE 300MG/5ML UDC PO SCH ×3 (09:05→17:43)
[2019-06-10 12:00] VITALS: BP 145/78
[2019-06-10] MEDS: LETROZOLE 2.5MG TABLET PO SCH (12:08)
[2019-06-10] MEDS: CEFTRIAXONE 1 G PREMIX 50 ML IV SCH (12:08)
[2019-06-10 16:00] VITALS: BP 143/70
[2019-06-10] MEDS ORDERED: BISACODYL 5MG TABLET PO NR (19:00)
[2019-06-10] MEDS ORDERED: METOCLOPRAMIDE HCL 10MG/2ML VIAL IV SCH ×2 (19:00→22:00)
[2019-06-10] MEDS ORDERED: LACTULOSE 20G/30ML UDC PO SCH ×2 (19:00→22:30)
[2019-06-10 20:00] VITALS: BP 143/78
[2019-06-10] MEDS ORDERED: BISACODYL 5MG TABLET PO SCH (22:30)
[2019-06-11] VITALS (8 sets, daily range): BP systolic 104–131; BP diastolic 52–77
[2019-06-11] MEDS ORDERED: METOCLOPRAMIDE HCL 10MG/2ML VIAL IV SCH (04:30)
[2019-06-11] MEDS ORDERED: BISACODYL 5MG TABLET PO SCH (04:30)
[2019-06-11] MEDS ORDERED: LACTULOSE 20G/30ML UDC PO SCH (04:30)
[2019-06-11 06:18] LABS: BASOPHILS % 0.5 % (0.0-2.0); EOSINOPHILS % 2.7 % (0.0-5.0); HEMATOCRIT. 30.6 % (36.0-48.0); HEMOGLOBIN. 9.9 g/dL (12.0-16.0); LYMPHOCYTES % 16.9 % (20.0-50.0); MEAN CORPUSCULAR HEMOGLOBIN 28.3 pg (28.0-32.0); MEAN CORPUSCULAR VOLUME 87.4 fL (81.0-99.0); MONOCYTES % 9.7 % (2.0-8.0); NEUTROPHILS % 70.2 % (40.0-76.0)
[2019-06-11 07:17] LABS: CHLORIDE 114 mEq/L (98-107)
[2019-06-11] MEDS ORDERED: SIMETHICONE 40 MG/0.6 ML 30ML ONE (13:08)
[2019-06-11] MEDS ORDERED: MIDAZOLAM HCL 5 MG/5 ML VIAL ONE (13:08)
[2019-06-11] MEDS ORDERED: FENTANYL CITRATE/PF 50MCG/ML 2ML VIAL ONE (13:09)
[2019-06-11] MEDS ORDERED: MIDAZOLAM HCL 5 MG/5 ML VIAL IV PRN (13:17)
[2019-06-11] MEDS ORDERED: FENTANYL CITRATE/PF 50MCG/ML 2ML VIAL IV PRN (13:18)
[2019-06-11] MEDS ORDERED: BACTERIOSTATIC SODIUM CHLORIDE 0.9% 30ML VIAL IJ ONE (14:10)
[2019-06-11] MEDS ORDERED: METOCLOPRAMIDE HCL 10MG/2ML VIAL IV NR ×2 (15:00→20:00)
[2019-06-11] MEDS ORDERED: BISACODYL 5MG TABLET PO ONE ×2 (15:00→20:00)
[2019-06-11] MEDS ORDERED: SORBITOL 70% SOLN 30ML GT NR ×2 (15:30→20:30)
[2019-06-11] MEDS ORDERED: POLYETHYLENE GLYCOL-ELECTROLYTE 4000ML GT NR (16:00)
[2019-06-11] MEDS: DOCUSATE SODIUM SUGAR FREE 100MG/10ML UDC PO SCH ×2 (17:00→17:55)
[2019-06-11] MEDS: CEFTRIAXONE 1 G PREMIX 50 ML IV SCH (17:55)
[2019-06-11] MEDS: DEXT 5%/0.45% NACL KCL 20MEQ/L 1,000 ML IV SCH (17:56)
[2019-06-12] VITALS (9 sets, daily range): BP systolic 108–175; BP diastolic 50–95
[2019-06-12] MEDS: DEXT 5%/0.45% NACL KCL 20MEQ/L 1,000 ML IV SCH (03:12)
[2019-06-12] MEDS ORDERED: BISACODYL 5MG TABLET PO ONE (04:00)
[2019-06-12] MEDS ORDERED: METOCLOPRAMIDE HCL 10MG/2ML VIAL IV NR ×2 (04:00→08:00)
[2019-06-12] MEDS ORDERED: SORBITOL 70% SOLN 30ML GT NR (04:30)
[2019-06-12 07:19] LABS: BASOPHILS % 0.5 % (0.0-2.0); EOSINOPHILS % 2.2 % (0.0-5.0); HEMOGLOBIN. 10.2 g/dL (12.0-16.0); LYMPHOCYTES % 13.8 % (20.0-50.0); MEAN CORPUSCULAR VOLUME 87.8 fL (81.0-99.0); MEAN PLATELET VOLUME 7.8 fl (7.4-10.4); MONOCYTES % 10.2 % (2.0-8.0); NEUTROPHILS % 73.3 % (40.0-76.0); PLATELET 375 x1000/uL (130-400); RED BLOOD CELL COUNT 3.65 mill/uL (4.2-5.4); RED CELL DISTRIBUTION WIDTH 16.2 % (11.6-14.6)
[2019-06-12 07:35] LABS: CHLORIDE 123 mEq/L (98-107)
[2019-06-12] MEDS ORDERED: SORBITOL 70% SOLN 30ML PEG NR (08:00)
[2019-06-12] MEDS: DOCUSATE SODIUM SUGAR FREE 100MG/10ML UDC PO SCH ×2 (08:16→18:09)
[2019-06-12] MEDS ORDERED: DEXTROSE 5% WATER 1,000 ML IV SCH (08:30)
[2019-06-12] MEDS: ONDANSETRON HCL 4MG/2ML INJ IV PRN (09:06)
[2019-06-12] MEDS ORDERED: CEFTRIAXONE 1,000 MG in DEXTROSE 5% WATER 50 ML IV SCH (13:00)
[2019-06-12] MEDS ORDERED: FENTANYL CITRATE/PF 50MCG/ML 2ML VIAL ONE (14:05)
[2019-06-12] MEDS ORDERED: FENTANYL CITRATE/PF 50MCG/ML 2ML VIAL IV PRN (14:05)
[2019-06-12] MEDS ORDERED: MIDAZOLAM HCL 5 MG/5 ML VIAL ONE (14:05)
[2019-06-12] MEDS ORDERED: MIDAZOLAM HCL 5 MG/5 ML VIAL IV PRN (14:05)
[2019-06-12] MEDS: LETROZOLE 2.5MG TABLET PO SCH ×2 (18:08→18:10)
[2019-06-13 04:00] VITALS: BP 108/54
[2019-06-13 06:52] LABS: CHLORIDE 119 mEq/L (98-107)
[2019-06-13 07:24] LABS: BASOPHILS % 0.7 % (0.0-2.0); EOSINOPHILS % 2.4 % (0.0-5.0); HEMATOCRIT. 30.2 % (36.0-48.0); HEMOGLOBIN. 9.6 g/dL (12.0-16.0); LYMPHOCYTES % 16.9 % (20.0-50.0); MEAN CORPUSCULAR HEMOGLOBIN 28.2 pg (28.0-32.0); MEAN CORPUSCULAR VOLUME 88.5 fL (81.0-99.0); MEAN PLATELET VOLUME 7.9 fl (7.4-10.4); MONOCYTES % 9.5 % (2.0-8.0); NEUTROPHILS % 70.5 % (40.0-76.0); PLATELET 334 x1000/uL (130-400); RED BLOOD CELL COUNT 3.41 mill/uL (4.2-5.4); RED CELL DISTRIBUTION WIDTH 16.3 % (11.6-14.6)
[2019-06-13] MEDS: DOCUSATE SODIUM SUGAR FREE 100MG/10ML UDC PO SCH ×2 (09:00→17:25)
[2019-06-13] MEDS: ACETAMINOPHEN 650MG/20.3ML UDC PO PRN (09:01)
[2019-06-13] MEDS: LETROZOLE 2.5MG TABLET PO SCH (09:01)
[2019-06-13] MEDS ORDERED: FERR325T23 MT (11:25)
[2019-06-13 12:00] VITALS: BP 153/55
[2019-06-13 16:00] VITALS: BP 138/74
[2019-06-13 16:20] VITALS: BP 123/74
[2019-06-13] MEDS ORDERED: CEFTRIAXONE 1,000 MG in DEXTROSE 5% WATER 50 ML IV SCH (18:00)
== END 2019-06-13 23:42 | disposition home or self-care (01) | DRG 244 ==
LOC: ER 14:46 → EDBEDREQTM 21:10 → EDBEDREQ 21:10 → ENRESERV 05-31 03:02 → 5WST 05-31 03:41 → MICUSO 06-02 13:19 → 5EST 06-03 21:45
PROVIDERS: ADMIT Internal Medicine; ATTEND Internal Medicine
PROC: 30233N1 Transfusion of Nonautologous Red Blood Cells into Peripheral Vein, Percutaneous Approach (ICD-10-PCS; 2019-06-01)
PROC: 0DJD8ZZ Inspection of Lower Intestinal Tract, Via Natural or Artificial Opening Endoscopic (ICD-10-PCS; principal; 2019-06-11)
PROC: 0DBN8ZZ Excision of Sigmoid Colon, Via Natural or Artificial Opening Endoscopic (ICD-10-PCS; 2019-06-12)
DX: K57.31 Diverticulosis of large intestine without perforation or abscess with bleeding (principal); N17.0 Acute kidney failure with tubular necrosis; G93.40 Encephalopathy, unspecified; I95.9 Hypotension, unspecified; E87.0 Hyperosmolality and hypernatremia; D62 Acute posthemorrhagic anemia; E83.52 Hypercalcemia; E83.41 Hypermagnesemia; I69.354 Hemiplegia and hemiparesis following cerebral infarction affecting left non-dominant side; E11.9 Type 2 diabetes mellitus without complications; E86.0 Dehydration; I69.320 Aphasia following cerebral infarction; K29.70 Gastritis, unspecified, without bleeding; K22.10 Ulcer of esophagus without bleeding; E87.6 Hypokalemia; N28.1 Cyst of kidney, acquired; R13.12 Dysphagia, oropharyngeal phase; I10 Essential (primary) hypertension; K56.41 Fecal impaction; K63.5 Polyp of colon; K44.9 Diaphragmatic hernia without obstruction or gangrene; K57.90 Diverticulosis of intestine, part unspecified, without perforation or abscess without bleeding; R09.02 Hypoxemia; Z85.3 Personal history of malignant neoplasm of breast; Z90.12 Acquired absence of left breast and nipple; Z82.49 Family history of ischemic heart disease and other diseases of the circulatory system; Z87.19 Personal history of other diseases of the digestive system; Z90.49 Acquired absence of other specified parts of digestive tract; Z74.01 Bed confinement status; Z79.82 Long term (current) use of aspirin; Z79.899 Other long term (current) drug therapy; K57.30 Diverticulosis of large intestine without perforation or abscess without bleeding
CPT/HCPCS: 36415; 36600; 71045; 74018; 74176; 80048; 80053; 80202; 81003; 82270; 82375; 82728; 82805; 82962; 83540; 83550; 83735; 83880; 84132; 84145; 84295; 84484; 85025; 86078; 86850; 86900; 86920; 88305; 92610; 93005; 93970; 99152; 99285; J0696; J2250; J2405; J2543; J2765; J3010; J3370; J3480; J3490; J7060; J7070; J8597; P9016; Q0163; G0500

== ENCOUNTER 2019-06-14 12:05 | Emergency (ER) | payer MEDICAID ==
[~2019-06-14] VITALS: Ht 162.6 cm; Wt 68.0 kg
[~2019-06-14 12:05] MED LIST changes: -BENA20TA10 GT; -DILT120T13 PO; +FERR325T23 MT
[2019-06-14 16:33] VITALS: BP 128/68
== END 2019-06-14 16:35 | disposition home or self-care (01) ==
LOC: ER 12:31
DX: K94.23 Gastrostomy malfunction (principal); E11.9 Type 2 diabetes mellitus without complications; E78.00 Pure hypercholesterolemia, unspecified; I10 Essential (primary) hypertension; Z86.73 Personal history of transient ischemic attack (TIA), and cerebral infarction without residual deficits; Z90.49 Acquired absence of other specified parts of digestive tract; Z79.82 Long term (current) use of aspirin; Y83.3 Surgical operation with formation of external stoma as the cause of abnormal reaction of the patient, or of later complication, without mention of misadventure at the time of the procedure; Y92.018 Other place in single-family (private) house as the place of occurrence of the external cause
CPT/HCPCS: 99284

== ENCOUNTER 2020-06-18 12:41 | Emergency (ER) | payer MEDICAID ==
[~2020-06-18] VITALS: Ht 162.6 cm; Wt 68.0 kg
[~2020-06-18 12:41] MED LIST changes: -ASPI-1158 GT; +ASPI-1406 GT
[2020-06-18 13:23] LABS: BASOPHILS % 0.2 % (0.0-2.0); EOSINOPHILS % 1.2 % (0.0-5.0); LYMPHOCYTES % 14.6 % (20.0-50.0); MEAN PLATELET VOLUME 7.7 fl (7.4-10.4); MONOCYTES % 8.7 % (2.0-8.0); NEUTROPHILS % 75.3 % (40.0-76.0); PLATELET 427 x1000/uL (130-400); RED BLOOD CELL COUNT 4.82 mill/uL (4.2-5.4); RED CELL DISTRIBUTION WIDTH 14.2 % (11.6-14.6)
[2020-06-18 14:50] LABS: CHLORIDE 106 mEq/L (98-107)
[2020-06-18 14:52] LABS: PROTHROMBIN TIME 10.9 sec (9.6-11.0)
[2020-06-18] MEDS ORDERED: LIDOCAINE HCL 1% 20ML VIAL (Pyxis) INJ ONE (15:01)
[2020-06-18] MEDS ORDERED: LIDOCAINE HCL 2% JELLY 5ML ONE (15:01)
[2020-06-18] MEDS ORDERED: SODIUM BICARBONATE 4% (2.4MEQ) 5ML VIAL IV ONE (15:01)
[2020-06-18] MEDS ORDERED: IOHEXOL-300 50 ML BOTTLE IV ONE (15:09)
[2020-06-18 17:50] VITALS: BP 141/64
== END 2020-06-18 18:04 | disposition home or self-care (01) ==
LOC: ER 13:24
DX: K94.23 Gastrostomy malfunction (principal); E11.9 Type 2 diabetes mellitus without complications; E78.00 Pure hypercholesterolemia, unspecified; Z86.73 Personal history of transient ischemic attack (TIA), and cerebral infarction without residual deficits; Z03.818 Encounter for observation for suspected exposure to other biological agents ruled out; Z90.49 Acquired absence of other specified parts of digestive tract; Z85.3 Personal history of malignant neoplasm of breast; Z79.82 Long term (current) use of aspirin; Y83.3 Surgical operation with formation of external stoma as the cause of abnormal reaction of the patient, or of later complication, without mention of misadventure at the time of the procedure; Y92.018 Other place in single-family (private) house as the place of occurrence of the external cause
CPT/HCPCS: 36415; 49450; 80053; 85025; 85610; 87426; 93005; 99285; C1769; C1892; J3490; Q9967; Z7610; L8514